=== PATIENT | female | born 1970 | race Caucasian/White ===

== ENCOUNTER 2017-06-10 14:03 | Emergency (ER) | payer SELFPAY ==
[~2017-06-10] VITALS: Ht 167.6 cm; Wt 97.3 kg
[2017-06-10 14:08] VITALS: BP 137/89
[2017-06-10] MEDS ORDERED: FLUORESCEIN OPHTHALMIC 1 MG STRIP ONE (14:27)
[2017-06-10] MEDS ORDERED: PROPARACAINE OPHTH 0.5%, 15ML ONE (14:27)
== END 2017-06-10 15:37 | disposition home or self-care (01) ==
LOC: ED 15:08
DX: H10.021 Other mucopurulent conjunctivitis, right eye (principal)
CPT/HCPCS: 99283